=== PATIENT | male | born 1955 | race Caucasian/White ===

== ENCOUNTER → 2020-07-21 | Outpatient (CLI) | payer BC ==
[2020-07-21 08:25] LABS: HCT 41.1 % (39.0-53.0); HGB 12.8 gm/dL (13.0-17.5); MCH 26.4 pg (25.0-35.0); MCHC 31.3 g/dL (31.0-37.0); MCV 84.4 fL (80.0-100.0); Mean Platelet Volume 7.5; Platelet Count 228 k/uL (150-450); RBC 4.87 m/uL (4.30-5.90); RDW 14.2 % (11.5-15.5); WBC 6.7 k/uL (3.8-10.6)
[2020-07-21 08:32] LABS: African American GFR (CKD) >90 (>60 ml/min/1.73 sqM); Anion Gap 7 mmol/L; Blood Urea Nitrogen 13 mg/dL (9-20); Carbon Dioxide 30 mmol/L (22-30); Chloride 100 mmol/L (98-107); Non-African American GFR(CKD) 79 (>60 ml/min/1.73 sqM); Sodium 137 mmol/L (137-145)
== END | disposition home or self-care (01) ==
LOC: LABPAT 07:51
PROVIDERS: ATTEND Internal Medicine Interventional Cardiology
DX: Z01.818 Encounter for other preprocedural examination (principal); I25.10 Atherosclerotic heart disease of native coronary artery without angina pectoris
CPT/HCPCS: 36415; 80051; 82565; 84520; 85027

== ENCOUNTER 2020-08-03 08:00 | Day surgery (SDC) | payer BC ==
[2020-08-02 10:39] VITALS: BMI 29.0
[~2020-08-03 08:00] MED LIST: ALPRAZolam 0.25 MG TAB PO PRN; ALPRAZolam 0.5 MG TAB PO PRN; ASPIRIN 325 MG TAB PO ONE; ATORVASTATIN 80 MG TAB PO ONE; NITROGLYCERIN SL TABS 0.4 MG TAB SUBLINGUAL PRN; SODIUM CHLORIDE 0.9% 1,000 ML in EMPTY BAG 1 BAG IV ONE
[2020-08-03] MEDS ORDERED: lisinopriL 20 MG TAB PO STA (08:16)
[2020-08-03] MEDS ORDERED: METOPROLOL TARTRATE 25 MG TAB PO STA (08:16)
[2020-08-03] MEDS ORDERED: amLODIPine 5 MG TAB PO STA (08:16)
[2020-08-03] MEDS ORDERED: CLOPIDOGREL 75 MG TAB PO ONE (08:20)
[2020-08-03 08:28] LABS: Glucose,Whole Blood 150 mg/dL (75-99)
[2020-08-03 08:30] VITALS: RESP 16; TEMP 98.4
[2020-08-03] MEDS ORDERED: VERAPAMIL 2.5 MG/ML 2 ML AMP ONE (09:30)
[2020-08-03] MEDS ORDERED: LIDOCAINE 1% INJ 10MG/ML (20 ML MDV) ONE (09:30)
[2020-08-03] MEDS: MIDAZOLAM 2 MG/2 ML VIAL IVP ONE ×2 (09:37→09:53)
[2020-08-03] MEDS ORDERED: LIDOCAINE 1% INJ 10MG/ML (20 ML MDV) SQ ONE (09:55)
[2020-08-03] MEDS ORDERED: HEPARIN SODIUM 1,000 UN/ML (10ML VL) ONE (09:56)
[2020-08-03] MEDS: VERAPAMIL SYRINGE (5 MG/10 ML) INTRAARTER ONE ×2 (09:57→10:07)
[2020-08-03] MEDS ORDERED: HEPARIN SODIUM 1,000 UN/ML (10ML VL) IV ONE (09:58)
[2020-08-03] MEDS ORDERED: IOPAMIDOL-370 125ML BTL INJ ONE (10:09)
[2020-08-03] MEDS ORDERED: RX INFO: IV CONTRAST WAS GIVEN 1 EACH MISC MISCELLANE PRN (10:13)
[2020-08-03] MEDS ORDERED: SODIUM CHLORIDE 0.9% 1,000 ML IV SCH (10:15)
[2020-08-03 14:38] VITALS: BP 138/72; PULSE 68
--- NOTE | 2020-08-03 16:40 | CC ---
CARDIAC CATHETERIZATION REPORT DATE OF SERVICE: 08/03/2020. PERFORMING PHYSICIAN: Dc Powers MD. PROCEDURE PERFORMED: 1. Selective right and left coronary angiogram. 2. Left heart catheterization. INDICATION: This is a 65-year-old gentleman with diabetes and hypertension and dyslipidemia and coronary artery disease who underwent stenting of the RCA in [place], recently this year actually, was experiencing symptoms of shortness of breath with exertion and chest discomfort with exertion concerning for severe underlying coronary artery disease. Because of that, a heart catheterization was advised. APPROACH: Right radial artery. COMPLICATION: None. LEVEL OF SEDATION: Moderate with sedation length of 16 minutes. PROCEDURE DESCRIPTION: After obtaining an informed consent, the patient was brought to the cardiac mushroom laborer. The right radial artery was cannulated using micropuncture technique, the micropuncture wire passed easily, then I placed a 6-[place]izen [place] sheath. I did give the patient 2 mg of verapamil IA and 8000 units of heparin IV. Selective right and left coronary angiogram performed using JR4 and JL3.5 catheters. Left heart catheterization was performed using the JR4 catheter which crossed the aortic valve, then I did pullback across the aortic valve. The procedure was completed without any complication. SELECTIVE CORONARY ANGIOGRAM: 1. Right coronary artery is a large caliber vessel and it is a dominant vessel. The proximal RCA is stented and the stent is patent. The mid RCA has a de William calcified lesion, appeared to be in the range of 90%. The RCA distally appeared to have mild disease only. In the RCA bifurcates into PDA and PLV branches. The PDA branch appeared to have intermediate to severe lesion and the PLV branch appeared to have mild disease only. 2. The left main is angiographically normal. It bifurcates into LCX, and LAD. 3. The LCX is a medium caliber vessel. The LCX is chronically occluded in the midportion on long segment and reconstitute by the PDA of the left circumflex. There is [id number] collateral filling that PDA. Before that occlusion, the LCX gives rise into a large OM branch which appeared to have mild disease only. 4. The LAD, the proximal LAD appeared to have mild disease only. The mid LAD after a tortuous segment appeared to have a tight lesion in the range of 80% to 90%. The LAD distally appeared to be angiographically normal. 5. HEMODYNAMICS: The LVEDP was 10 to 12 mmHg without significant gradient across the aortic valve. CONCLUSION: 1. Severe triple-vessel coronary artery disease. 2. Patent stent in the proximal RCA with critical disease involving the mid RCA. 3. 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 4. Severe disease involving the mid LAD. POSTPROCEDURE MANAGEMENT: 1. Given the above anatomy, I recommended maximized medical treatment at this point. 2. Obtaining a consult from cardiothoracic surgeon for the evaluation of CABG. MMODL / IJN: [id number] /
--- NOTE | 2020-08-03 16:46 | LTR ---
DATE OF SERVICE: 08/03/2020 RE: Denton Baldwin Dear Dr. Patel: Mr. Denton Baldwin underwent today a heart catheterization and that revealed severe triple-vessel coronary artery disease. With his diabetes and with the calcifications on his coronary arteries, I advised to be seen by a surgeon for the evaluation of coronary artery bypass grafting. I want to thank you for allowing us to participate in his care and please do not hesitate to call if you have any question or concern. Sincerely, Dc Powers MD MMCHANTALL / LEENAN: [id number] /
== END 2020-08-03 14:30 | disposition home or self-care (01) ==
LOC: CATHCVL 08:00
PROVIDERS: ATTEND Internal Medicine Interventional Cardiology
DX: I25.110 Atherosclerotic heart disease of native coronary artery with unstable angina pectoris (principal); I25.82 Chronic total occlusion of coronary artery; I77.1 Stricture of artery; R06.02 Shortness of breath; R07.89 Other chest pain; E11.9 Type 2 diabetes mellitus without complications; I10 Essential (primary) hypertension; E78.5 Hyperlipidemia, unspecified; E78.00 Pure hypercholesterolemia, unspecified; I45.10 Unspecified right bundle-branch block; Z95.5 Presence of coronary angioplasty implant and graft; Z79.890 Hormone replacement therapy; Z79.02 Long term (current) use of antithrombotics/antiplatelets; Z79.84 Long term (current) use of oral hypoglycemic drugs; Z79.899 Other long term (current) drug therapy; Z79.82 Long term (current) use of aspirin
CPT/HCPCS: 93458; C1769 ×2; C1894; J2250; J2001; J1644; Q9967

== ENCOUNTER 2020-08-13 07:28 | Day surgery (SDC) | payer BC ==
[~2020-08-13 07:28] MED LIST changes: -ASPIRIN 325 MG TAB PO ONE; +ASPIRIN 325 MG TAB PO STA; -ATORVASTATIN 80 MG TAB PO ONE
[2020-08-13] MEDS ORDERED: METOPROLOL TARTRATE 25 MG TAB PO STA (07:41)
[2020-08-13] MEDS ORDERED: amLODIPine 5 MG TAB PO STA (07:41)
[2020-08-13] MEDS ORDERED: lisinopriL 20 MG TAB PO STA (07:41)
[2020-08-13] MEDS ORDERED: SODIUM CHLORIDE 0.9% 1,000 ML IV ONE (07:52)
[2020-08-13 07:55] LABS: Glucose,Whole Blood 111 mg/dL (75-99)
[2020-08-13 08:02] LABS: Basophils # (A) 0.1 k/uL (0-0.2); Basophils % (A) 1 %; Eosinophils # (A) 0.2 k/uL (0-0.7); Eosinophils % (A) 3 %; HCT 40.1 % (39.0-53.0); HGB 13.1 gm/dL (13.0-17.5); Lymphocytes # (A) 1.4 k/uL (1.0-4.8); Lymphocytes % (A) 24 %; MCH 26.6 pg (25.0-35.0); MCHC 32.7 g/dL (31.0-37.0); MCV 81.3 fL (80.0-100.0); Mean Platelet Volume 7.7; Monocytes # (A) 0.4 k/uL (0-1.0); Monocytes % (A) 7 %; Neutrophils # (A) 3.7 k/uL (1.3-7.7); Neutrophils % (A) 62 %; Platelet Count 235 k/uL (150-450); RBC 4.93 m/uL (4.30-5.90); RDW 14.1 % (11.5-15.5)
[2020-08-13 08:12] LABS: Calcium 9.2 mg/dL (8.4-10.2)
[2020-08-13] MEDS ORDERED: fentaNYL (PF) 50 MCG/ML 2 ML AMP IV ONE (08:42)
[2020-08-13] MEDS ORDERED: MIDAZOLAM 2 MG/2 ML VIAL IV ONE (08:43)
[2020-08-13] MEDS ORDERED: LIDOCAINE 1% INJ 10MG/ML (20 ML MDV) SQ ONE (08:44)
[2020-08-13] MEDS ORDERED: BIVALIRUDIN BOLUS 250 MG/50 ML IV ONE (08:50)
[2020-08-13] MEDS: NITROGLYCERIN 1000MCG/10ML SYRINGE INTRACORON ONE ×3 (08:56→09:37)
[2020-08-13] MEDS ORDERED: BIVALIRUDIN 250 MG in SODIUM CHLORIDE 0.9% 50 ML IV ONE (08:57)
[2020-08-13] MEDS ORDERED: IOPAMIDOL-370 125ML BTL INJ ONE (09:38)
[2020-08-13] MEDS ORDERED: CLOPIDOGREL 75 MG TAB PO ONE (09:38)
[2020-08-13] MEDS ORDERED: ZOLPIDEM 5 MG TAB PO PRN (09:49)
[2020-08-13] MEDS ORDERED: ATROPINE SULFATE 0.1 MG/ML 10ML SYRINGE IV PRN (09:49)
[2020-08-13] MEDS ORDERED: MAG HYDROX/AL HYDROX/SIMETH 30 ML CUP PO PRN (09:49)
[2020-08-13] MEDS ORDERED: NITROGLYCERIN SL TABS 0.4 MG TAB SUBLINGUAL PRN (09:49)
[2020-08-13] MEDS ORDERED: RX INFO: IV CONTRAST WAS GIVEN 1 EACH MISC MISCELLANE PRN (09:49)
[2020-08-13] MEDS ORDERED: SODIUM CHLORIDE 0.9% 1,000 ML IV SCH (10:00)
--- NOTE | 2020-08-13 10:55 | PTCA ---
PERCUTANEOUSTRANS CORORONARY ANGIOGRAPHY DATE OF SERVICE: 08/13/2020 PERFORMING PHYSICIAN: Dc Powers MD. PROCEDURE PERFORMED: 1. Successful atherectomy of the mid right coronary artery using the orbital atherectomy device. 2. Successful stenting of the mid RCA using 3.5 x 15 mm Xience drug-eluting stent with an excellent angiographic results and reduction of stenosis from 80% to 0%. 3. Successful stenting of the mid left anterior descending artery using 2.0 x 12 mm [place] drug-eluting stent with an excellent angiographic results and reduction of stenosis from 70% to 0%. 4. Successful placement of transvenous temporary pacemaker from right groin approach. INDICATION: This is a 65-year-old gentleman with diabetes and hypertension and dyslipidemia who was experiencing symptoms of chest pain with exertion, concerning for severe underlying coronary artery disease. He is also known to have coronary artery disease and he underwent stenting of the RCA in [place] in November of 2019. He was seen as a new patient in the office recently with symptoms of angina. I did perform a heart catheterization on him and that revealed severe triple-vessel coronary artery disease. At that point I stopped and I discussed with the patient to be evaluated by cardiothoracic surgeon, but the patient would like to pursue with stenting at this point and he did not want surgery. He was brought today to undergo stenting of the RCA and LAD. APPROACH: Right common femoral vein and right common femoral artery. COMPLICATION: None. LEVEL OF SEDATION: Moderate with sedation length of 58 minutes. PROCEDURE DESCRIPTION: After obtaining an informed consent, the patient was brought to the cardiac clinical lab clerk. The right common femoral vein and right common femoral artery were cannulated using micropuncture technique. I did place a 6-Hebrew sheath in the vein and 6-Hebrew sheath in the artery. At that point, anticoagulation was initiated using Angiomax. The patient was given a bolus and drip per protocol. Subsequently, I did under fluoroscopy guidance, advanced transvenous temporary pacemaker from the right common femoral vein all the way to the right ventricle. The pacemaker was tested and the pacemaker was placed for a backup at heart rate at 50 and amp of 5. Subsequently, I did engage the right coronary artery initially using JR3.5 guide and subsequently using JR4 H guiding catheter. I did wire the RCA using TEAM INTERVALer Advantage wire. Subsequently, I did atherectomy of the RCA using the orbital atherectomy device with 2 runs under low speed with each run of 20 seconds. After that, balloon angioplasty was performed using 3.0 x 12 mm balloon before I deployed 3.5 x 15 mm Xience drug-eluting stent where the stent was positioned under fluoroscopy guidance and deployed under fluoroscopic guidance as well. The following angiogram showed excellent angiographic results. For the lesion in the LAD, I did engage the left main using JL4 guide. I did wire the LAD using a run-through wire. Attempting advancing 2 5 x 12 mm balloon was unsuccessful and because of that, I wired the LAD using a rocio wire and that was with a whisper wire. Over the whisper, I was able to advance 2.5 x 12 mm balloon where I did PTCA ballooning of the LAD before I deployed 2.0 x 12 mm David drug-eluting stent where the stent was positioned under fluoroscopy guidance and deployed under 18 atmospheres for 20 seconds. The following angiogram showed excellent angiographic results and the procedure was completed without any complication. POSTPROCEDURE MANAGEMENT: 1. Dual anti-platelet therapy. 2. Risk factor modifications. 3. Aggressive cholesterol control. 4. Follow up with the patient. MMODL / IJN: [id number] /
--- NOTE | 2020-08-13 11:01 | LTR ---
DATE OF SERVICE: 08/13/2020 RE: Denton Baldwin Dear Dr. Patel; Mr. Denton Baldwin underwent today successful stenting of the right coronary artery and left anterior descending artery with adjunctive use of atherectomy with an excellent angiographic results and without any complication. He will be staying overnight and going home tomorrow. I want to thank you again for allowing us to participate in his care and please do not hesitate to call if you have any question or concern. Sincerely, Dc Powers MD MMBRUNA / MARCUS: [id number] /
[2020-08-13 15:14] VITALS: BMI 27.8
[2020-08-13] MEDS: amLODIPine 5 MG TAB PO SCH (20:24)
[2020-08-13] MEDS: GLIMEPIRIDE 4 MG TAB PO SCH (20:24)
--- NOTE | 2020-08-13 22:17 | P.CONS ---
History of Present Illness - Reason for Consult Consult date: 08/13/20 Post PCI in 2 stent placement, medical management Requesting physician: Dc Powers - Chief Complaint Recurrent angina and chest pain post PCI and stent placement of the RCA and - History of Present Illness 65-year-old male one of my office patient with known very well who is originally from [place] was visiting [place] last year or patient had an acute CT ended up going through an emergency angiogram and angioplasty of the right coronary artery and 2 stent placement was were done at the time patient has done well was started on medical management. After he came back to the [facility] patient was seen Dr. Gama cardiology and loss a few weeks with his stress test and ech ocardiogram showed significant abnormality ration was taken to the skilled labor on 08/03/2020 did selective right and left coronary angiography result showed severe triple-vessel disease with patent stent in the proximal RCA with a critical disease involving the mid RCA chronic total occlusion of the left circumflex and severe disease involving the mid LAD. Patient apparently rejected the idea of going for CABG and asked to do conservative management and try to fix it with angioplasty and stent placement. He ended up having elective procedure done today with Dr. Powers which patient had successful atherectomy of the midright coronary artery using orbital atherectomy device successful stenting of the mid RCA, successful stenting of the mid LAD. Patient procedure complete successfully with no major complication was admitted to the observation unit for overnight stay to watch for any complication or symptoms. Patient is feeling very well so far no complication his catheter was done via right radius artery with no bleeding or hemorrhage. Review of Systems CONSTITUTIONAL: Well-developed no acute respiratory distress. EYES: No icterus sclerae, no conjunctivitis. EARS, NOSE, MOUTH, THROAT, and FACE: No sore throat, lymphadenopathy, carotid bruits or deformity. RESPIRATORY: No SOB cough or wheezes. CARDIOVASCULAR: No CP, Palpitation, PND, Orthopnea, or angina. GASTROINTESTINAL: No Abd pain, Nausea or vomiting, no Diarrhea or constipation, No GI Bleed, no distention or masses. GENITOURINARY: Negative for Hematuria or UTI, no kidney stones. INTEGUMENT/BREAST: Negative for any muscular injury with mild osteoarthritis.. HEMATOLOGIC/LYMPHATIC: Negative for bleed or purpura. MUSCULOSKELTAL: Negative for Myalgia or arthralgia. NEURLOGICAL: No LOC, Sz or syncope, blurred vision dizziness or abnormality.. BEHAVIORAL/PSYCH: Negative. ENDOCRINE: Negative. Past Medical History Past Medical History: Diabetes Mellitus, Hyperlipidemia, Hypertension, Myocardial Infarction (CT), Thyroid Disorder Additional Past Medical History / Comment(s): See Dr Powers's H&P. Last Myocardial Infarction Date:: 11/13 History of Any Multi-Drug Resistant Organisms: None Reported Past Surgical History: Heart Catheterization With Stent Additional Past Surgical History / Comment(s): Cardiac stents X2, bilateral Cataract surgery. Past Anesthesia/Blood Transfusion Reactions: No Reported Reaction Date of Last Stent Placement:: 11/13 Past Psychological History: No Psychological Hx Reported Smoking Status: Never smoker Past Alcohol Use History: None Reported Past Drug Use History: None Reported - Past Family History Mother Family Medical History: No Reported History Medications and Allergies Home Medications Medication Instructions Recorded Confirmed Type Aspirin [Adult Low Dose Aspirin EC] 81 mg PO DAILY 08/02/20 08/13/20 History Atorvastatin [Lipitor] 40 mg PO DAILY 08/02/20 08/13/20 History Clopidogrel [Plavix] 75 mg PO DAILY 08/02/20 08/13/20 History Fenofibrate Nanocrystallized 145 mg PO DAILY 08/02/20 08/13/20 History [Fenofibrate] Glimepiride [Amaryl] 4 mg PO BID 08/02/20 08/13/20 History Levothyroxine Sodium 100 mcg PO DAILY 08/02/20 08/13/20 History Metoprolol 25 mg PO DAILY 08/02/20 08/13/20 History amLODIPine [Norvasc] 5 mg PO BID 08/02/20 08/13/20 History lisinopriL 20 mg PO DAILY 08/02/20 08/13/20 History Allergies Allergy/AdvReac Type Severity Reaction Status Date / Time No Known Allergies Allergy Verified 08/11/20 12:45 Physical Exam Vitals: Vital Signs Temp Pulse Pulse Resp BP BP BP 08/13/20 20:32 70 18 08/13/20 20:29 97.9 F 70 18 139/76 08/13/20 16:00 08/13/20 15:10 95 18 122/71 08/13/20 15:00 95 18 08/13/20 14:40 63 16 118/70 08/13/20 14:10 63 16 119/71 08/13/20 13:55 65 18 112/72 08/13/20 13:40 66 16 128/76 08/13/20 13:30 63 16 08/13/20 13:25 97.4 F L 69 16 130/79 08/13/20 12:31 54 L 16 117/67 08/13/20 12:09 57 L 16 118/64 08/13/20 12:08 55 L 16 116/63 08/13/20 11:55 55 L 16 128/70 08/13/20 11:33 55 L 16 115/68 08/13/20 11:01 52 L 16 124/69 08/13/20 10:34 57 L 16 105/66 08/13/20 10:19 52 L 16 105/64 08/13/20 10:04 56 L 16 118/69 08/13/20 09:55 54 L 16 113/70 08/13/20 07:50 98.1 F 72 16 129/67 136/76 Pulse Ox 08/13/20 20:32 08/13/20 20:29 97 08/13/20 16:00 97 08/13/20 15:10 95 08/13/20 15:00 08/13/20 14:40 94 L 08/13/20 14:10 95 08/13/20 13:55 99 08/13/20 13:40 98 08/13/20 13:30 08/13/20 13:25 98 08/13/20 12:31 98 08/13/20 12:09 97 08/13/20 12:08 98 08/13/20 11:55 97 08/13/20 11:33 98 08/13/20 11:01 96 08/13/20 10:34 97 08/13/20 10:19 96 08/13/20 10:04 98 08/13/20 09:55 98 08/13/20 07:50 97 Intake and Output 08/13/20 08/13/20 08/13/20 06:59 14:59 22:59 Intake Total 682 225 Output Total 325 400 Balance 357 -175 Intake: IV 442 Sodium Chloride 0.9% 1, 250 000 ml @ 75 mls/hr IV . [id number] [facility] Rx#:[id number] Intake, IV Titration 225 Amount Sodium Chloride 0.9% 1, 225 000 ml @ 75 mls/hr IV . [id number] [facility] Rx#:[id number] Oral 240 Output: Urine 325 400 Other: Voiding Method Toilet # Voids 225 # Bowel Movements 0 Weight 83.1 kg 83.1 kg General Appearance: Alert, cooperative, no distress, appears stated age. Neck HEENT: Supple, no lymphadenopathy, no thyroid enlargement, no carotid bruits. Lungs: Clear to auscultation without crackles or wheezes no rhonchi, no deformity. Chest Wall: Chest wall normal expansion with deep inspiration no tenderness and no deformity was found on exam, no costochondral pain or discomfort. Heart: Regular rate and rhythm, S1, S2 normal, no murmur, rub or gallop. Back: Symmetric, no curvature, ROM normal, no CVA tenderness. Abdomen: Soft, non-tender, bowel sounds active all four quadrants, no masses, no organomegaly. Extremities: Extremities normal, atraumatic, no cyanosis or edema. Right radius area no hematoma bleeding or hemorrhage. Pulses: 2+ and symmetric. Skin: Skin color, texture, tugor normal, no rashes or lesions. Neurologic: Alert oriented x3 cranial nerves II through XII intact, no motor deficit, no abnormal balance or gait. Results CBC & Chem 7: 08/13/20 07:45 08/13/20 12:57 Labs: Abnormal Lab Results - Last 24 Hours (Table) 08/13/20 08/13/20 Range/Units 07:45 07:48 Sodium 135 L (137-145) mmol/L Potassium 6.0 H (3.5-5.1) mmol/L Glucose 119 H (74-99) mg/dL POC Glucose (mg/dL) 111 H (75-99) mg/dL Assessment and Plan Assessment: 1 multiple vessel coronary artery disease: Post angioplasty and stent placement of the mid RCA and mid LAD successful procedure with no complications so far wit h one area of the circumflex was severely block did not have any angioplasty or stent on it. Maximize medical management at this point with a higher statin dose along with beta abdelrahman and dual antiplatelet agent. [address] over a year ago continue medical management patient is doing well. 3 type 2 diabetes: Patient has been on metformin along with glyburide still doing Accu-Chek with sliding scales coverage. 4 hypertension: Has been on lisinopril 20 mg twice a day along with metoprolol 25 mg twice a day and Norvasc 5 mg twice a day. 5 hyperlipidemia: Remain on atorvastatin 40 mg a day along with fenofibrate 145 mg daily. 6 hypothyroidism: Continue levothyroxine at 100 g daily. 7 GI prophylaxis: To use OTC Pepcid 20 mg daily. CODE STATUS: Full code. Dr. Gama thank you very much for the consult. Can be any further help to please let me know.
[2020-08-14 05:05] VITALS: PULSE 68; TEMP 98
[2020-08-14 06:21] LABS: Glucose,Whole Blood 106 mg/dL (75-99)
[2020-08-14] MEDS ORDERED: LEVOTHYROXINE 100 MCG TAB PO SCH (06:30)
[2020-08-14 08:18] VITALS: BP 117/69; RESP 16
[2020-08-14] MEDS: GLIMEPIRIDE 4 MG TAB PO SCH (08:27)
[2020-08-14] MEDS: amLODIPine 5 MG TAB PO SCH (08:28)
[2020-08-14] MEDS ORDERED: METOPROLOL TARTRATE 25 MG TAB PO SCH (09:00)
[2020-08-14] MEDS ORDERED: ASPIRIN 81 MG PO SCH (09:00)
[2020-08-14] MEDS ORDERED: lisinopriL 20 MG TAB PO SCH (09:00)
[2020-08-14] MEDS ORDERED: CLOPIDOGREL 75 MG TAB PO SCH (09:00)
[2020-08-14] MEDS ORDERED: FENOFIBRATE 160 MG TAB PO SCH (09:00)
[2020-08-14] MEDS ORDERED: ATORVASTATIN 40 MG TAB PO SCH (09:00)
[2020-08-14 09:22] LABS: Basophils # (A) 0.1 k/uL (0-0.2); Basophils % (A) 1 %; Eosinophils # (A) 0.1 k/uL (0-0.7); Eosinophils % (A) 2 %; HCT 39.3 % (39.0-53.0); HGB 12.9 gm/dL (13.0-17.5); Lymphocytes % (A) 16 %; MCH 27.4 pg (25.0-35.0); MCHC 32.9 g/dL (31.0-37.0); MCV 83.5 fL (80.0-100.0); Mean Platelet Volume 7.5; Monocytes # (A) 0.4 k/uL (0-1.0); Monocytes % (A) 7 %; Neutrophils # (A) 4.6 k/uL (1.3-7.7); Neutrophils % (A) 73 %; Platelet Count 210 k/uL (150-450); RBC 4.71 m/uL (4.30-5.90); WBC 6.4 k/uL (3.8-10.6)
[2020-08-14 09:31] LABS: Calcium 9.4 mg/dL (8.4-10.2); Potassium 4.7 mmol/L (3.5-5.1)
--- NOTE | 2020-08-14 10:15 | DS ---
DISCHARGE SUMMARY ADMISSION DATE: August 13, 2020. DISCHARGE DATE: August 14, 2020. BRIEF HISTORY: This is a 65-year-old gentleman who underwent yesterday successful atherectomy and stenting of the right coronary artery as well as successful stenting of the mid left anterior descending artery with an excellent angiographic result and without any complication from right groin approach. The patient was seen this morning. The right groin is soft and nontender and without any bruises. He was quite frustrated because he asked to go home yesterday and we did not discharge him yesterday. 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 He stated that he will be compliant with all of his medications including dual anti- platelet therapy. I will follow up with the patient next week in the office. NURIA / LEENAN: [id number] /
== END 2020-08-14 09:52 | disposition home or self-care (01) ==
LOC: CATHCVL 07:28 → 1SOBS 11:48 → CATHCVL 08-14 09:52
PROVIDERS: ATTEND Internal Medicine Interventional Cardiology
DX: I25.10 Atherosclerotic heart disease of native coronary artery without angina pectoris (principal); Z95.5 Presence of coronary angioplasty implant and graft; I10 Essential (primary) hypertension; E11.9 Type 2 diabetes mellitus without complications; E03.9 Hypothyroidism, unspecified; E78.5 Hyperlipidemia, unspecified; I45.10 Unspecified right bundle-branch block; I25.119 Atherosclerotic heart disease of native coronary artery with unspecified angina pectoris; I25.2 Old myocardial infarction; Z98.42 Cataract extraction status, left eye; Z98.41 Cataract extraction status, right eye; Z79.84 Long term (current) use of oral hypoglycemic drugs; Z79.02 Long term (current) use of antithrombotics/antiplatelets; Z79.82 Long term (current) use of aspirin; Z79.890 Hormone replacement therapy; Z79.899 Other long term (current) drug therapy
CPT/HCPCS: 80048 ×2; 84132; 85025 ×2; C9600; C9602; C1769 ×6; C1887 ×3; C1725 ×2; C1894 ×2; C1724; C1874 ×2; J2250; J2001; J3010; J0583; Q9967